=== PATIENT | female | born 1980 | race Caucasian/White ===

== ENCOUNTER 2023-03-17 03:33 | Day surgery (SDC) | payer OTHER, SELFPAY ==
[2023-03-16 12:30] VITALS: BMI 37.0
[2023-03-17] VITALS (19 sets, daily range): BP systolic 101–132; BP diastolic 7–84; PULSE 89–98; RESP 14–20; TEMP 36.4; O2SAT 96–100; BMI 37.0
--- NOTE | 2023-03-17 09:36 | WPDHPUPDATE1 ---
History and Physical Update Update Date/Time: 03/17/23 09:36 History and Physical has been reviewed, including an updated exam of the patient. There are NO changes in the patient's condition. Risks, benefits, and alternatives have been discussed and questions answered. Patient agrees to proceed with procedure.
--- NOTE | 2023-03-17 09:36 | WPDMODSED ---
Moderate Sedation Note-Pt Data Patient Data Diagnosis: CVA Present Complaint: none Procedure to be performed/Plan: transesophageal echocardiogram Allergies Allergy/AdvReac Type Severity Reaction Status Date / Time fentanyl AdvReac Intermediate Rash Verified 03/17/23 08:03 Home Medications Medication Instructions Recorded Confirmed Type albuterol sulfate 90 mcg/actuation 2 puff inhalation Q4-6H PRN 03/16/23 03/16/23 History aerosol inhaler (ProAir HFA) Wheezing aspirin 81 mg chewable tablet 81 mg PO DAILY 03/16/23 03/16/23 History bupropion HCl 150 mg 24 hr tablet, 150 mg PO TID 03/16/23 03/16/23 History extended release (Wellbutrin XL) citalopram 40 mg tablet (Celexa) 40 mg PO DAILY 03/16/23 03/16/23 History cyclobenzaprine 10 mg tablet 10 mg PO TID PRN Muscle Spasm 03/16/23 03/16/23 History diltiazem HCl 240 mg 240 mg PO DAILY 03/16/23 03/16/23 History capsule,extended release 24 hr (Cardizem CD) folic acid 1 mg tablet 1 mg PO DAILY 03/16/23 03/16/23 History hydrocodone 10 mg-acetaminophen 1 tablet PO Q6H PRN Pain 03/16/23 03/16/23 History 325 mg tablet lorazepam 1 mg tablet (Ativan) 1 mg PO QHS 03/16/23 03/16/23 History pantoprazole 40 mg tablet,delayed 40 mg PO DAILY 03/16/23 03/16/23 History release rosuvastatin 20 mg tablet 20 mg PO DAILY 03/16/23 03/16/23 History Current Medications: see list Sedation/Anesthesia: No previous sedation/anesthesia problems (including family history) aside from local reaction previously suspected to be an adverse reaction to Fentanyl. Therefore, Fentanyl will not be used during this procedure. [facility] Past Medical History Medical History CVA (cerebral vascular accident) SVT (supraventricular tachycardia) Social History Social History Smoking status: Never smoker Second hand tobacco smoke exposure: No Alcohol intake: never Substance use: never Substance use type: does not use Living arrangements: with family Spiritual care concerns: No Mod Sed Physical Exam Physical Exam Pre Procedural Exam: Normal: Appearance, Eyes, Ears, Nose, Neck (supple normal range of motion), Throat (posterior hypopharynx clear and nonerythematous), Airway (normal anatomy, no obstruction), Lungs (clear to auscultation bilaterally), Heart Size, Heart Rate, Heart Rhythm, Neuro Exam, Abdomen, Liver, Extremities and Skin Hours since solid foods: 12 Hours since liquid intake: 12 Mallampati Classification: class III Internal Medicine - PN: Obj Da Vital Signs Vital Signs: Vital Signs - 24 hr 03/17/23 08:10 03/17/23 08:45 03/17/23 08:55 Temperature 36.4 C L Pulse Rate 93 97 95 Respiratory Rate 16 19 20 Blood Pressure 120/7 L 132/74 121/75 Pulse Oximetry 100 100 99 Oxygen Delivery Room Air Nasal Cannula Nasal Cannula Oxygen Flow Rate 2 2 03/17/23 09:00 03/17/23 09:05 03/17/23 09:15 Temperature Pulse Rate 94 94 93 Respiratory Rate 16 19 17 Blood Pressure 113/73 116/70 117/72 Pulse Oximetry 100 99 98 Oxygen Delivery Nasal Cannula Nasal Cannula Nasal Cannula Oxygen Flow Rate 2 2 2 03/17/23 09:20 03/17/23 09:30 03/17/23 08:50 Temperature Pulse Rate 90 89 98 Respiratory Rate 15 15 18 Blood Pressure 122/69 114/68 127/84 Pulse Oximetry 98 97 98 Oxygen Delivery Nasal Cannula Nasal Cannula Nasal Cannula Oxygen Flow Rate 2 2 2 03/17/23 09:10 03/17/23 09:25 03/17/23 09:35 Temperature Pulse Rate 93 91 89 Respiratory Rate 15 17 15 Blood Pressure 115/84 111/71 110/70 Pulse Oximetry 98 99 98 Oxygen Delivery Nasal Cannula Nasal Cannula Nasal Cannula Oxygen Flow Rate 2 2 2 ASA Classification/Sedation ASA Classification/Sedation ASA Class: III Emergent: No Risks: Risks, benefits and alternatives explained and patient/family accepted plan for sedation. Patient re-evaluated immediately prior to sedation.
--- NOTE | 2023-03-17 09:39 | P.PCNTEE_ITS ---
[facility] TransEsophageal Echocardiogram Date of procedure: 03/17/23 Procedure Type: Transesophageal echocardiogram Diagnosis: cryptogenic stroke Indications: cryptogenic stroke Image Quality: N/A Findings: Brief history present illness: Patient is a pleasant 42-year-old female with a history of SVT status post ablation with recent cryptogenic stroke status post tPA referred for transesophageal echocardiogram to assess for intracardiac shunt and intracardiac thrombus as possible contribution for embolic stroke. Procedure in detail: After verbal and written informed consent was obtained the patient risks, benefits, and alternatives explained in detail the patient agreed to proceed with the plan of care as outlined above. The patient was evaluated at bedside in the [facility] procedure room. The posterior oropharynx, neck, and jaw angle all within normal limits on examination. Lungs were clear to auscultation. See pre-sedation note for further details The patient was then placed in the appropriate 30 to 45 degree angle supine position at a slight left lateral decubitus position. Patient was monitored throughout the study with telemetry, oxygen saturation, end-tidal CO2 monitoring, blood pressure, heart rate, and respirations. The posterior hypopharynx was then locally anesthetized using repeated administration of Hurricaine spray as well as gargled viscous lidocaine. After local anesthetic of the posterior hypopharynx was achieved and the oral bite block placed, moderate sedation was administered. After confirmation of adequate moderate sedation, the transesophageal echocardiogram probe was advanced through the oral bite block into the posterior hypopharynx and into the esophagus easily and without complication. Multiple, multiplanar echocardiographic images were obtained in multiple standard re- projections. Pulsed wave, continuous-wave, and color-flow Doppler were utilized in conjunction with this study. At the conclusion of the study, the transesophageal echocardiogram probe was removed easily and without complication. The patient tolerated the procedure well without difficulty. Patient was in sinus rhythm throughout the study. Moderate Sedation/Anesthesia administration: Patient reports no prior problems with sedation/anesthesia. Please see pre- sedation noted for physical examination documentation. As noted above, after adequate local anesthesia of the posterior hypopharynx was achieved, a total of 9 mg intravenous Versed in multiple divided doses was administered for moderate sedation. Sedation start time was 0850 and end time was 0918 for a total intra- service/procedure face-face time of 28 minutes. Sedation was administered by a qualified/certified observer Jasmin Casanova RN under my supervision with intra- procedure [id number] observation and management throughout the entirety of the procedure. There were no other issues or complications and patient tolerated the procedure well. See post-anesthesia documentation. Conclusions: Procedure aborted due to inability to adequately sedate with Versed alone and patient comfort. Plan to reschedule transesophageal echocardiogram with the assistance of Anesthesiology.
--- NOTE | 2023-03-17 09:41 | W.PM.PROC2 ---
Procedure Note - Detailed Date of Procedure 03/17/23 Pre-op Diagnosis Cryptogenic stroke Post-op Diagnosis Same Procedure Performed Loop recorder implantation Surgeon Yoel Green MD Anesthesia Local (lidocaine 1%) Indications cryptogenic stroke Findings see below Description of Procedure Brief History of Present Illness: Patient is a very pleasant 42-year-old female with history of PSVT status post ablation with recent cryptogenic stroke status post tPA referred for transesophageal echocardiogram and loop recorder implantation to assess for as yet undiagnosed atrial fibrillation and/or atrial flutter as potential cause for her stroke. After verbal and written informed consent was obtained from the patient risks, benefits, and alternatives explained in detail the patient agreed to proceed with the plan of care as outlined above. Patient was evaluated at bedside in the [facility] procedure room. Patient was placed the appropriate supine position. Left anterior chest wall was prepped and draped in the usual sterile fashion. Operators in appropriate sterile garb. The left 4th intercostal space was identified and marked. Utilizing approximately 26 cc of 1% subcutaneous lidocaine the left anterior chest wall was then locally anesthetized. After local anesthesia was achieved, 2 fingerbreadths left of the sternum at the 4th intercostal space was again identified and a 1 cm incision was made with the included skin punch tool. Following this with the included introducer, a tract was made subcutaneously at a 45 degree angle from the sternum. The introducer was then inverted 180 degrees and with the included plunger the Medtronic REVEAL LINQ II loop recorder was advanced subcutaneously into position easily and without complication. The plunger was then removed followed by the introducer. Manual pressure was held for least 5-10 min with excellent hemostasis. The device was then interrogated and revealed acceptable fidelity and measured at 0.11 mV. Discussion with device apprenticeship training representative at bedside noted no over sensing or undersensing and did not recommendation repositioning given low but acceptable signal and good fidelity given her anatomy. The Medtronic REVEAL LINQ II SN [id number] was implanted without complication. The incision was then approximated and closed using Exofin skin adhesive. The incision was then covered with a sterile dressing. Complications: None CONCLUSIONS: SUCCESSFUL IMPLANTATION OF [employer] REVEAL IMPLANTABLE LOOP RECORDER. Implants MEDTRONIC LOOP RECORDER Estimated Blood Loss 0 Drains No Packing No Pathology None sent Condition Stable Disposition Same day
== END 2023-03-17 10:56 | disposition home or self-care (01) ==
LOC: ANHCATHLAB 03:35 → ANHCPCTRAN 07:58 → ANHCATHLAB 08:08
PROVIDERS: Visit Provider Internal Medicine Cardiovascular Disease
PROC: (CPT 33285; principal; 2023-03-17 08:30)
PROC: (CPT 93312; 2023-03-17 08:30)
DX: I63.9 Cerebral infarction, unspecified (principal); I47.10 Supraventricular tachycardia, unspecified; J45.909 Unspecified asthma, uncomplicated; E78.2 Mixed hyperlipidemia; G47.33 Obstructive sleep apnea (adult) (pediatric); Q24.5 Malformation of coronary vessels; E66.01 Morbid (severe) obesity due to excess calories; Z68.37 Body mass index [BMI] 37.0-37.9, adult; Z79.51 Long term (current) use of inhaled steroids; Z79.82 Long term (current) use of aspirin; Z79.891 Long term (current) use of opiate analgesic; Z86.79 Personal history of other diseases of the circulatory system; Z53.8 Procedure and treatment not carried out for other reasons
CPT/HCPCS: 33285; 93312; 93320; 93325; J2250; J7040

== ENCOUNTER 2023-04-08 01:56 | Day surgery (SDC) | payer OTHER, SELFPAY ==
[2023-04-07 15:21] VITALS: BMI 35.6
--- NOTE | 2023-04-08 12:09 | WPDHPUPDATE1 ---
History and Physical Update Update Date/Time: 04/08/23 12:09 History and Physical has been reviewed, including an updated exam of the patient. There are NO changes in the patient's condition. Risks, benefits, and alternatives have been discussed and questions answered. Patient agrees to proceed with procedure.
--- NOTE | 2023-04-08 12:09 | WPDTEECHO ---
[facility] TransEsophageal Echocardiogram Date of procedure: 04/08/23 Procedure Type: Transesophageal echocardiogram Diagnosis: Cryptogenic stroke Indications: cryptogenic stroke Image Quality: acceptable Findings: Brief history present illness: Patient is a pleasant 42-year-old female with past medical history significant for SVT status post remote ablation who unfortunately experienced a recent cryptogenic stroke status post tPA subsequently referred for transesophageal echocardiogram to assess for intracardiac shunt and or intracardiac thrombus as possible contribution for embolic stroke. Prior temp transesophageal echocardiogram was unsuccessful due to inability to adequately sedate despite excessive moderate sedation. Procedure in detail: After verbal and written informed consent was obtained the patient risks, benefits, and alternatives explained in detail the patient agreed to proceed with the plan of care as outlined above. The patient was evaluated at bedside in the [facility] procedure room. The posterior oropharynx, neck, and jaw angle all within normal limits on examination. Lungs were clear to auscultation. See pre-sedation note for further details The patient was then placed in the appropriate 30 to 45 degree angle supine position at a slight left lateral decubitus position. Patient was monitored throughout the study with telemetry, oxygen saturation, end-tidal CO2 monitoring, blood pressure, heart rate, and respirations. The posterior hypopharynx was then locally anesthetized using administration of Hurricaine spray. After local anesthetic of the posterior hypopharynx was achieved and the oral bite block placed, sedation was administered by Anesthesiology. After confirmation of adequate sedation, the transesophageal echocardiogram probe was advanced through the oral bite block into the posterior hypopharynx and into the esophagus easily and without complication. however, the patient then began to gag and the transesophageal echocardiogram probe was then removed she had mild emesis which was promptly managed by Anesthesiology. After additional sedation, patient was quite comfortable and the transesophageal echocardiogram probe was then advanced and placed without issue. Multiple, multiplanar echocardiographic images were obtained in multiple standard re- projections. Pulsed wave, continuous-wave, and color-flow Doppler were utilized in conjunction with this study. At the conclusion of the study, the transesophageal echocardiogram probe was removed easily and without complication. The patient tolerated the procedure well without difficulty. Patient was in sinus rhythm throughout the study. Moderate Sedation/Anesthesia administration: Patient reports no prior problems with sedation/anesthesia. Please see Anesthesiology documentation for sedation details and protocol. FINDINGS: LEFT VENTRICLE: Size and systolic function were within normal limits without wall motion abnormalities with ejection fraction of 70-75%. RIGHT VENTRICLE: Size and systolic function within normal limits. LEFT ATRIUM: Normal size. RIGHT ATRIUM: Normal size. INTERATRIAL SEPTUM: Interatrial septum is anatomically normal without evidence of shunt with color-flow Doppler nor with injection of agitated saline with and without Valsalva. MITRAL VALVE: Mitral valve is anatomically normal with preserved leaflet excursion and mild regurgitation. AORTIC VALVE: The aortic valve was an anatomically normal 3 leaflet structure with normal leaflet excursion and no regurgitation identified. TRICUSPID VALVE: The tricuspid valve is anatomically normal with normal leaflet excursion with trivial regurgitation identified. No mobile elements identified. PULMONIC VALVE: Pulmonic valve was not well visualized, however, trivial regurgitation was identified. LEFT ATRIAL APPENDAGE: Anatomically normal structure with prominent pectinate muscles withou
[2023-04-08 12:12] VITALS: BP 121/85; PULSE 98; RESP 16; TEMP 36.3; O2SAT 97; BMI 35.6
--- NOTE | 2023-04-08 12:25 | WPDMODSED ---
Moderate Sedation Note-Pt Data Patient Data Diagnosis: cryptogenic stroke Present Complaint: none Procedure to be performed/Plan: transesophageal echocardiogram history and physical update: Patient is a very pleasant 42-year-old female with a history of SVT status post ablation a history of atypical chest pain experienced a cryptogenic stroke status post tPA referred for transesophageal echocardiogram to assess for congenital heart disease/intracardiac shunt and or cardiac source of emboli. First attempt was unsuccessful as she was unable to be sedated despite excessive amount of moderate sedation. She is now returning for transesophageal echocardiogram with the assistance of Anesthesiology. Impression/plan of care: 1. Cryptogenic stroke- transesophageal echocardiogram 2. History of SVT status post ablation Recommendations to follow status post transesophageal echocardiogram. Allergies Allergy/AdvReac Type Severity Reaction Status Date / Time fentanyl AdvReac Intermediate Rash Verified 04/08/23 12:07 Home Medications Medication Instructions Recorded Confirmed Type albuterol sulfate 90 mcg/actuation 2 puff inhalation Q4-6H PRN 03/16/23 04/07/23 History aerosol inhaler (ProAir HFA) Wheezing aspirin 81 mg chewable tablet 81 mg PO DAILY 03/16/23 04/07/23 History bupropion HCl 150 mg 24 hr tablet, 150 mg PO TID 03/16/23 04/07/23 History extended release (Wellbutrin XL) citalopram 40 mg tablet (Celexa) 40 mg PO DAILY 03/16/23 04/07/23 History cyclobenzaprine 10 mg tablet 10 mg PO TID PRN Muscle Spasm 03/16/23 04/07/23 History diltiazem HCl 240 mg 240 mg PO DAILY 03/16/23 04/07/23 History capsule,extended release 24 hr (Cardizem CD) folic acid 1 mg tablet 1 mg PO DAILY 03/16/23 04/07/23 History hydrocodone 10 mg-acetaminophen 1 tablet PO Q6H PRN Pain 03/16/23 04/07/23 History 325 mg tablet lorazepam 1 mg tablet (Ativan) 1 mg PO QHS 03/16/23 04/07/23 History pantoprazole 40 mg tablet,delayed 40 mg PO DAILY 03/16/23 04/07/23 History release rosuvastatin 20 mg tablet 20 mg PO DAILY 03/16/23 04/07/23 History Current Medications: Active Medications Lidocaine HCl (Lidocaine Hcl 2% Visc Soln 15 Ml Udc) 20 ml PO ONCE ONE Stop: 04/09/23 12:01 Sedation/Anesthesia: No previous sedation/anesthesia problems (including family history). [facility] Past Medical History Medical History CVA (cerebral vascular accident) SVT (supraventricular tachycardia) Social History Social History Smoking status: Never smoker Second hand tobacco smoke exposure: No Alcohol intake: never Substance use: never Substance use type: does not use Living arrangements: with family Gender identity (if verbalized by the patient): Female Sexual Orientation (if Verbalized by the Patient): Lesbian, Martinez, or Homosexual Spiritual care concerns: No Mod Sed Physical Exam Physical Exam Pre Procedural Exam: Normal: Appearance, Eyes, Ears, Nose, Neck ( supple, normal range of motion), Throat ( clear, nonerythematous), Airway ( normal anatomy, no obstruction), Lungs ( Clear to auscultation bilaterally), Heart Size, Heart Rate, Heart Rhythm, Neuro Exam, Abdomen, Extremities and Skin Hours since solid foods: 12 Hours since liquid intake: 12 Mallampati Classification: class III Internal Medicine - PN: Obj Da Vital Signs Vital Signs: Vital Signs - 24 hr 04/08/23 12:12 Temperature 36.3 C L Pulse Rate 98 Respiratory Rate 16 Blood Pressure 121/85 Pulse Oximetry 97 Oxygen Delivery Room Air Meds/Results Medications: Active Medications Generic Name Dose Route Start Last Admin Trade Name Freq PRN Reason Stop Dose Admin Lidocaine HCl 20 ml 04/09/23 12:00 Lidocaine Hcl 2% Visc Soln 15 Ml Udc PO 04/09/23 12:01 ONCE ONE ASA Classification/Sedation ASA Classification/S
--- NOTE | 2023-04-08 13:37 | WPDANESEPPF ---
Anes - Initial Pre Proc Eval Procedure: Operation Date: 04/08/23 13:00 Proposed Procedures p Trans Esophageal Echo - Yoel Green MD Date/Time: 04/08/23 13:37 Surgeon: Yoel Green MD Pre Op Diagnosis: Cryptogenic Stroke Patient Data Age: 42 Gender: F Height: 1.68 m Weight: 100 kg Last Vital Signs Temp 36.3 C L 04/08/23 12:12 Pulse 98 04/08/23 12:12 Resp 16 04/08/23 12:12 BP 121/85 04/08/23 12:12 Pulse Ox 97 04/08/23 12:12 O2 Del Method Room Air 04/08/23 12:12 Allergies Allergy/AdvReac Type Severity Reaction Status Date / Time fentanyl AdvReac Intermediate Rash Verified 04/08/23 12:07 Home Medications Medication Instructions Recorded Confirmed Type albuterol sulfate 90 mcg/actuation 2 puff inhalation Q4-6H PRN 03/16/23 04/07/23 History aerosol inhaler (ProAir HFA) Wheezing aspirin 81 mg chewable tablet 81 mg PO DAILY 03/16/23 04/07/23 History bupropion HCl 150 mg 24 hr tablet, 150 mg PO TID 03/16/23 04/07/23 History extended release (Wellbutrin XL) citalopram 40 mg tablet (Celexa) 40 mg PO DAILY 03/16/23 04/07/23 History cyclobenzaprine 10 mg tablet 10 mg PO TID PRN Muscle Spasm 03/16/23 04/07/23 History diltiazem HCl 240 mg 240 mg PO DAILY 03/16/23 04/07/23 History capsule,extended release 24 hr (Cardizem CD) folic acid 1 mg tablet 1 mg PO DAILY 03/16/23 04/07/23 History hydrocodone 10 mg-acetaminophen 1 tablet PO Q6H PRN Pain 03/16/23 04/07/23 History 325 mg tablet lorazepam 1 mg tablet (Ativan) 1 mg PO QHS 03/16/23 04/07/23 History pantoprazole 40 mg tablet,delayed 40 mg PO DAILY 03/16/23 04/07/23 History release rosuvastatin 20 mg tablet 20 mg PO DAILY 03/16/23 04/07/23 History Patient hx anesthesia problems: none Family hx anesthesia problems: none Results Review: All pre-operative results and documents have been reviewed as part of the pre-operative evaluation. [facility] Past Medical History Medical History CVA (cerebral vascular accident) SVT (supraventricular tachycardia) Social History Social History Smoking status: Never smoker Second hand tobacco smoke exposure: No Alcohol intake: never Substance use: never Substance use type: does not use Living arrangements: with family Gender identity (if verbalized by the patient): Female Sexual Orientation (if Verbalized by the Patient): Lesbian, Martinez, or Homosexual Spiritual care concerns: No Anes - Eval Final PreProcedure Day of Procedure 04/08/23 13:37 Patient weight: obese Heart: regular rate and rhythm Lungs: decreased breath sounds Airway: Mallampati scale class II Neurological: alert and oriented Last oral intake: >/= 8 hours ASA classification: IV Emergent: no Anesthetic plan: proceed Anesthesia type and monitoring: general GIVS and standard monitoring Results Review: All pre-operative results and documents have been reviewed as part of the pre-operative evaluation. Informed Consent: The patient's anesthetic plan and its attendant risks and benefits were discussed with the patient/family/POA. Questions were solicited and answers provided to the satisfaction of the patient/family/POA.
[2023-04-08 13:55] VITALS: BP 109/65; PULSE 106; RESP 22; O2SAT 92
[2023-04-08 14:10] VITALS: BP 98/56; PULSE 98; RESP 22; O2SAT 93
[2023-04-08 14:25] VITALS: BP 99/65; PULSE 90; RESP 17; O2SAT 94
[2023-04-08 14:40] VITALS: BP 104/70; PULSE 90; RESP 20; O2SAT 94
[2023-04-08 15:05] VITALS: BP 110/74; PULSE 94; RESP 20; O2SAT 92
== END 2023-04-08 15:45 | disposition home or self-care (01) ==
PROVIDERS: Visit Provider Internal Medicine Cardiovascular Disease
PROC: (CPT 93312; principal; 2023-04-08 13:00)
DX: I34.0 Nonrheumatic mitral (valve) insufficiency (principal); I63.9 Cerebral infarction, unspecified; Z86.79 Personal history of other diseases of the circulatory system; Z79.51 Long term (current) use of inhaled steroids; Z79.82 Long term (current) use of aspirin; E66.9 Obesity, unspecified; Z68.35 Body mass index [BMI] 35.0-35.9, adult
CPT/HCPCS: 93312; 93320; 93325; J2704; J7040

== ENCOUNTER 2024-03-30 12:53 | Emergency (ER) | payer OTHER, SELFPAY ==
--- NOTE | ~2024-03-30 | CT_ITS ---
EXAMINATION: CTA BRAIN/CAROTID DATE: 03/30/2024 14:51 INDICATION: Left-sided face and arm numbness TECHNIQUE: Computed tomographic angiography (CTA) of the head and neck was performed with 100 mL Omni paque-350 intravenous contrast. Multiplanar reconstructions and maximum intensity projection 3D-recon structions of the carotid arteries and of the intracranial arteries were created by the technologist on a separate workstation. Precontrast CT of the head was also obtained. Automated exposure control and iterative reconstruction technique were employed.The dose-length product was 1645.12 mGy-cm. COMPARISON: None. FINDINGS: Carotid arteries: Visualized aortic arch is normal in caliber with no dissection. There is no evident atherosclerotic p laque with 0% stenosis of the right and left carotid bulbs relative to normal distal artery lumen shilpa meter (NASCET criteria). Cervical portions of the bilateral vertebral arteries are codominant and wit hout stenosis. Visualized upper lungs are clear. Mild cervical spondylosis. Cervical soft tissues are unremarkable. Head: No acute intracranial hemorrhage, acute infarction or abnormal extra axial fluid collection. Ventricl es are normal and symmetric. No mass/mass effect. Moderate mucosal thickening along the floor of the left maxillary sinus. The orbits and mastoid air cells are normal. Intracranial arteries Vertebral arteries are codominant. There is no hemodynamically significant stenosis in the vertebral, basilar and internal carotid arteries. Vertebral arteries are codominant. There are no aneurysms uriel ntified. Both A1 and P1 segments are patent. Cerebral arterial arborization appears symmetric. IMPRESSION: 1. No atherosclerotic plaque with 0% stenosis of the right and left carotid bulbs relative to normal distal artery lumen diameter (NASCET criteria). 2. Normal brain and cerebral CT angiogram. No evident acute intracranial process. Reviewed, dictated and finalized at location B. CAL BILLING CLERK IMPRESSION: 1. No atherosclerotic plaque with 0% stenosis of the right and left carotid bul bs relative to normal distal artery lumen diameter (NASCET criteria). 2. Normal brain and cerebral CT angiogram. No evident acute intracranial proces s.
--- NOTE | ~2024-03-30 | XR_ITS ---
CHEST RADIOGRAPH, PA AND LATERAL CLINICAL HISTORY: left face and left arm numbness. PT HAS LOOP RECORDER . COMPARISON: 02/24/2017 TECHNIQUE: PA and lateral views of the chest. FINDINGS Loop recorder projects to the left of midline. The remainder of the cardiomediastinal silhouette is otherwise unremarkable. The lungs are clear. IMPRESSION: No focal infiltrate or effusion. Reviewed, dictated and finalized at location A. HEAT ROOM ATTENDANT
[2024-03-30 13:01] VITALS: BP 144/92; PULSE 101; RESP 16; TEMP 36.8; O2SAT 100
--- NOTE | 2024-03-30 13:04 | ECG_ITS ---
Test Date: 2024-03-30 13:45:07 Measurements Intervals [place] Rate: 89 P: 34 IA: 125 QRS: 33 QRSD: 84 T: 51 QT: 353 QTc: 430 Interpretive Statements SINUS RHYTHM No previous ECG available for comparison Electronically Signed On 04-03-2024 14:31:17 STOCK CHECKERER by Brent Lyles M.D.
--- NOTE | 2024-03-30 13:05 | ED.NEUROSD ---
HPI - Neuro Symptoms/Deficit General Chief Complaint: Neuro Symptoms/Deficit Stated Complaint: LEFT SIDED FACIAL NUMBNESS Focused HPI: 43-year-old female with history of CVA 14 months ago and ?extra heart beats with loop recorder in place presents to the emergency department for left-sided facial numbness and left arm numbness for 2 days. Patient denies injury trauma to her head. States she had a history of CVA 14 months ago but has been cleared by her neurologist at [facility] and has not seen him in 1 year. She is taking a statin but is otherwise not taking any medications. No chest pain or shortness of breath. She is not anticoagulated. GENERAL: Well-appearing, well-nourished, and in no acute distress. HEAD: Normocephalic, atraumatic. CHEST: Clear to auscultation. ?No respiratory distress. HEART: Regular rate and rhythm.? NEURO: ?Alert and oriented x3. Diminished sensation to the L V2 and V3 distribution and to the left arm throughout, otherwise cranial nerves 2-12 intact. Remainder of sensation intact. Strength 5/5 in BUE and BLE. Normal [id number]. No pronator drift. Patient screened in triage and initial orders placed.? ?Additional care and disposition to be based upon?diagnostic testing and treatment. Related Data Home Medications ?Medication ?Instructions ?Recorded ?Confirmed ?Last Taken ?Type albuterol sulfate 90 mcg/actuation 2 puff inhalation Q4-6H PRN 03/16/23 04/07/23 04/07/23 History aerosol inhaler (ProAir HFA) Wheezing 2 puff aspirin 81 mg chewable tablet 81 mg PO DAILY 03/16/23 04/07/23 04/08/23 History 81 mg bupropion HCl 150 mg 24 hr tablet, 150 mg PO TID 03/16/23 04/07/23 04/08/23 History extended release (Wellbutrin XL) 150 mg citalopram 40 mg tablet (Celexa) 40 mg PO DAILY 03/16/23 04/07/23 04/08/23 History 40 mg cyclobenzaprine 10 mg tablet 10 mg PO TID PRN Muscle Spasm 03/16/23 04/07/23 04/08/23 History 10 mg diltiazem HCl 240 mg 240 mg PO DAILY 03/16/23 04/07/23 04/08/23 History capsule,extended release 24 hr 240 mg (Cardizem CD) folic acid 1 mg tablet 1 mg PO DAILY 03/16/23 04/07/23 04/07/23 History 1 mg hydrocodone 10 mg-acetaminophen 1 tablet PO Q6H PRN Pain 03/16/23 04/07/23 04/07/23 History 325 mg tablet 1 tablet lorazepam 1 mg tablet (Ativan) 1 mg PO QHS 03/16/23 04/07/23 04/07/23 History 1 mg pantoprazole 40 mg tablet,delayed 40 mg PO DAILY 03/16/23 04/07/23 04/07/23 History release 40 mg rosuvastatin 20 mg tablet 20 mg PO DAILY 03/16/23 04/07/23 04/08/23 History 20 mg Allergies Allergy/AdvReac Type Severity Reaction Status Date / Time fentanyl AdvReac Intermediate Rash Verified 04/08/23 12:07 [facility] Past Medical History Medical History CVA (cerebral vascular accident) SVT (supraventricular tachycardia) Social History Social History Smoking status: Never smoker Second hand tobacco smoke exposure: No Alcohol intake: never Substance use: never Substance use type: does not use Living arrangements: with family Gender identity (if verbalized by the patient): Female Sexual Orientation (if Verbalized by the Patient): Lesbian, Martinez, or Homosexual Spiritual care concerns: No Course Vital Signs Vital signs: Vital Signs Temperature 98.3 F 03/30/24 13:01 Pulse Rate 101 H 03/30/24 13:01 Respiratory Rate 16 03/30/24 13:01 Blood Pressure 144/92 H 03/30/24 13:01 Pulse Oximetry 100 03/30/24 13:01 Temperature 98.2 F 03/30/24 17:40 Pulse Rate 91 03/30/24 17:40 Respiratory Rate 18 03/30/24 17:40 Blood Pressure 129/85 03/30/24 17:40 Pulse Oximetry 99 03/30/24 17:40 MDM - Neuro Symptoms/Deficit Lab Data 03/30/24 13:38 03/30/24 13:38 Labs: Lab Results 03/30/24 03/30/24 Range/Units 13:38 13:39 WBC 8.4 (4.5-10.0) K/mm3 RBC 4.14 L (4.2-5.4) M/mm3 Hgb 11.9 L (12.0-15.0) g/dL Hct 36.3 L (37.0-47.0) % MCV 87.7 (80-100) fl MCH 28.7 (26-34) pg MCHC 32.8 (32-36) g/dl RDW 13.2 (11.5-14.5) % Plt Count 256 (150-375) k/mm3 MPV 9.7 (7.4-10.4) fl Immature Gran % (Auto) 0.2 (0-0.5) % Neut % (Auto) 51.9 (45.5-73.1) % Lymph % (Auto) 33.1 (18.3-44.2) % [place] % (Auto) 7.9 (2.6-8.5) % Eos % (Auto) 6.2 H (0-4.4) % Baso % (Auto) 0.7 (0.2-1.2) % Lymph # (Auto) 2.77 (0.9-3.2) K/mm3 [place] # (Auto) 0.7 H (0.1-0.6) K/mm3 Eos # (Auto) 0.5 H (0-0.3) K/mm3 Baso # (Auto) 0.1 (0.0-0.1) K/mm3 Abs Immat Gran (auto) 0.02 (0.00-0.031) K/mm3 Absolute Neuts (auto) 4.3 (1.3-6.7) K/mm3 Absolute Nucleated RBC 0.000 (0.0-0.012) K/mm3 Nucleated RBC % 0.0 (0.0-0.2) % PT 14.2 (11.1-14.7) Seconds INR 1.1 APTT 31.1 (22.3-36.8) Seconds Sodium 136 L (137-145) mmol/L Potassium 4.2 (3.4-5.0) mmol/L Chloride 107 (98-107) mmol/L Carbon Dioxide 28 (22-30) mmol/L Anion Gap 1 L (4-12) mmol/L BUN 6 L (7-17) mg/dL Creatinine 0.70 (0.7-1.0) mg/dL Estim Creat Clear Calc 95 ml/min Estimated GFR > 60 (59 - ) Glucose 107 (65-110) mg/dL Calcium 8.7 (8.4-10.2) mg/dL Total Bilirubin 0.3 (0.2-1.3) mg/dL AST 22 (14-36) U/L ALT 9 (6-35) U/L Alkaline Phosphatase 68 (38-126) U/L Troponin I < 0.012 (0.000-0.034) ng/mL Total Protein 7.0 (6.3-8.2) g/dL Albumin 4.3 (3.5-5.1) g/dL Discharge Plan Discharge Clinical Impression: Facial numbness Patient Disposition: Elopement After Seen by Prov Condition: Stable Patient Language: Kiswahili Prescriptions: No Action cyclobenzaprine 10 mg Tablet 10 mg PO TID PRN (Reason: Muscle Spasm) citalopram [Celexa] 40 mg Tablet 40 mg PO DAILY diltiazem HCl [Cardizem CD] 240 mg Capsule,Extended Release 24hr 240 mg PO DAILY hydrocodone-acetaminophen 10-325 mg Tablet 1 tablet PO Q6H PRN (Reason: Pain) pantoprazole 40 mg Tablet,Delayed Release (Dr/Ec) 40 mg PO DAILY aspirin 81 mg Tablet,Chewable 81 mg PO DAILY folic acid 1 mg Tablet 1 mg PO DAILY lorazepam [Ativan] 1 mg Tablet 1 mg PO QHS albuterol sulfate [ProAir HFA] 90 mcg/actuation Hfa Aerosol Inhaler 2 puff INHALATION Q4-6H PRN (Reason: Wheezing) rosuvastatin 20 mg Tablet 20 mg PO DAILY bupropion HCl [Wellbutrin XL] 150 mg Tablet Extended Release 24 Hr 150 mg PO TID Follow-up/Referrals: PHYSICIAN,BIAS CUTTER HELPER [Non-Staff] -
[2024-03-30 13:50] LABS: Basophils Absolute Auto 0.1 K/mm3 (0.0-0.1); Basophils Percent Auto 0.7 % (0.2-1.2); Eosinophils Absolute Auto 0.5 K/mm3 (0-0.3); Eosinophils Percent Auto 6.2 % (0-4.4); Hematocrit 36.3 % (37.0-47.0); Hemoglobin 11.9 g/dL (12.0-15.0); Immature Granulocyte Absolute 0.02 K/mm3 (0.00-0.031); Immature Granulocyte Percent A 0.2 % (0-0.5); Lymphocytes Absolute Auto 2.77 K/mm3 (0.9-3.2); Lymphocytes Percent Auto 33.1 % (18.3-44.2); Mean Corpuscular HGB Conc 32.8 g/dl (32-36); Mean Corpuscular Hemoglobin 28.7 pg (26-34); Mean Corpuscular Volume 87.7 fl (80-100); Mean Platelet Volume 9.7 fl (7.4-10.4); Monocytes Absolute Auto 0.7 K/mm3 (0.1-0.6); Monocytes Percent Auto 7.9 % (2.6-8.5); Neutrophils Absolute Auto 4.3 K/mm3 (1.3-6.7); Neutrophils Percent Auto 51.9 % (45.5-73.1); Platelet Count Result 256 k/mm3 (150-375); Red Blood Count 4.14 M/mm3 (4.2-5.4); Red Cell Distribution Width 13.2 % (11.5-14.5); White Blood Count 8.4 K/mm3 (4.5-10.0)
[2024-03-30 14:03] LABS: INR 1.1; Prothrombin Time 14.2 Seconds (11.1-14.7)
[2024-03-30 14:04] LABS: Alanine Aminotransferase 9 U/L (6-35); Albumin Level 4.3 g/dL (3.5-5.1); Alkaline Phosphatase 68 U/L (38-126); Anion Gap 1 mmol/L (4-12); Aspartate Amino Transferase 22 U/L (14-36); Bilirubin,Total 0.3 mg/dL (0.2-1.3); Blood Urea Nitrogen 6 mg/dL (7-17); Calcium 8.7 mg/dL (8.4-10.2); Carbon Dioxide 28 mmol/L (22-30); Chloride 107 mmol/L (98-107); Estimated CRCL calculation 95 ml/min; Estimated Glomerular Filt Rate > 60; Glucose 107 mg/dL (65-110); Potassium 4.2 mmol/L (3.4-5.0); Sodium 136 mmol/L (137-145)
[2024-03-30 14:04] LABS: Partial Thromboplastin Time 31.1 Seconds (22.3-36.8)
[2024-03-30 14:15] LABS: Troponin I < 0.012 ng/mL (0.000-0.034)
[2024-03-30 17:40] VITALS: BP 129/85; PULSE 91; RESP 18; TEMP 36.8; O2SAT 99
== END 2024-03-31 06:51 | disposition left against medical advice (07) ==
PROVIDERS: Emergency Provider Physician Assistant
DX: R20.0 Anesthesia of skin (principal); Z86.73 Personal history of transient ischemic attack (TIA), and cerebral infarction without residual deficits; Z79.899 Other long term (current) drug therapy
CPT/HCPCS: 36415; 70496; 70498; 71046; 80053; 84484; 85025; 85610; 85730; 93005; 99284; Q9967